=== PATIENT | female | born 1990 ===

== ENCOUNTER 2023-03-02 17:07 | Inpatient (IN) ==
[2023-03-02] MEDS ORDERED: OXYTOCIN 30 UNITS/500 ML BAG IV PRN (19:48)
[2023-03-02] MEDS ORDERED: LIDOCAINE 1% LOCAL 20 ML VIAL INFIL PRN (19:48)
--- NOTE | 2023-03-02 19:51 | History & Physical Report ---
Date of Service March 02, 2023 Assessment & Plan (1) Supervision of normal intrauterine in primigravida: Plan: Admit to L&D. Suspect early labor, but since she is gustavo and making cervical change will admit. She would prefer to allow labor to progress naturally and does not plan for an epidural. Labs, IV, EFM/toco. History of Present Illness Chief Complaint: contractions Primary Care Provider: NO PCP 32yo @ 41 11/27, presented to L&D with contractions. No leaking fluid, no vaginal bleeding. + movement. 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 Allergies Allergy/AdvReac Type Severity Reaction Status Date / Time No Known Allergies Allergy Verified 03/02/23 17:51 Home Medications Medication Instructions Recorded Confirmed Type vitamin with calcium 1 tab PO DAILY 08/29/22 03/02/23 History no.72-iron 27 mg-folic acid 1 mg tablet ( Plus (calcium carbonate)) famotidine [Pepcid] PO 02/07/23 02/28/23 History Patient History Surgical History S/P dilation and curettage S/P wisdom tooth extraction Family History (Updated 08/29/22 @ 13:42 by Kelli Causey) Grandmother Heart disease Aunt Diabetes Social History (Updated 08/29/22 @ 13:43 by Kelli Causey) Smoking Status: Never smoker Do You Dip or Chew Tobacco: No; Hx Alcohol Use: No Hx Substance Use: No Preferred Language: Tuvaluan Communication Ability: Effective 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 Beliefs That Will Affect Care: None marital status: marital status details: Manny (33) [phone] Current Living Situation: Spouse Current Living Situation Comment: Manny - current occupational status: employed current occupation: [employer] Other Information That Helps Us Care for You: No Feels Safe at Home: Yes Safety Concerns: Feels Safe At This Time Review of Systems All systems reviewed & are unremarkable except as noted in HPI & below Physical Exam Physical Exam: FHT Cat 1 [place] Q 2-4 SVE on presentation , recheck 2h later Constitutional: WD/WN, vitals as above Respiratory: normal respiratory effort, lungs clear to auscultation no respiratory distress Cardiovascular: Rate/Rhythm: regular rate and regular rhythm Gastrointestinal (Abdomen): Inspection/Auscultation: abdomen normal to inspection Percussion/Palpation: abdomen soft; abdomen nontender Gravid. No s/s chorio or abruption. Skin: no rashes, warm and dry Psychiatric: A+Ox3, euthymic affect Results & Data Vital Signs (Past 12 Hours) Vital Signs Temp Pulse Resp BP 03/02/23 19:07 18 03/02/23 19:07 36.7 C 18 03/02/23 19:09 73 112/85 03/02/23 17:27 90 137/87 03/02/23 17:26 37.3 C 20 Coding Level of Care Code None Diagnoses Supervision of normal intrauterine in primigravida Z34.00
[2023-03-02 20:17] LABS: Hemoglobin 12.9 g/dl (12.0-16.0); Mean Corpuscular Hemoglobin 30.6 pg (25.0-34.0); Mean Corpuscular Hgb Conc 34.9 g/dL (32.0-36.0); Mean Corpuscular Volume 87.7 fL (80.0-100.0); Mean Platelet Volume 11.9 fL (9.4-12.4); Platelet Count 200 K/uL (130-400); RDW Coefficient of Variation 13.8 % (11.5-14.5); Red Blood Count 4.22 M/uL (4.20-5.40); White Blood Count 14.14 K/ul (4.8-10.8)
[2023-03-03] MEDS: LACTATED RINGER'S 1,000 ML IV PRN ×3 (03:42→11:16)
[2023-03-03] MEDS ORDERED: ePHEDrine sulfate 50 MG/ML AMP ONE (03:50)
[2023-03-03] MEDS ORDERED: BUPIVACAINE 0.25% PF 30 ML VIAL ONE (03:50)
[2023-03-03] MEDS ORDERED: SODIUM CHLORIDE 0.9% PF INJ 10 ML VIAL ONE (03:50)
[2023-03-03] MEDS ORDERED: fentaNYL citrate PF 100 MCG/2 ML VIAL ONE (03:50)
[2023-03-03] MEDS ORDERED: LIDOCAINE 2%/EPINEPHRINE 1:200,000 20 ML PF ONE (03:51)
[2023-03-03] MEDS ORDERED: fentaNYL 2MCG/ML ROPIVACAINE 1.25MG/ML 100 ML BAG EPI ONE (03:51)
[2023-03-03] MEDS ORDERED: BUPIVACAINE 0.25% PF 30 ML VIAL EPI PRN (04:00)
[2023-03-03] MEDS ORDERED: LIDOCAINE 2% MPF LOCAL 5 ML VIAL EPI PRN (04:00)
[2023-03-03] MEDS ORDERED: BUPIVACAINE 0.25% PF 30 ML VIAL EPI STA (04:00)
[2023-03-03] MEDS ORDERED: ROPIVACAINE 0.5% PF 5 MG/ML 20 ML VIAL EPI PRN (04:00)
[2023-03-03] MEDS ORDERED: SODIUM CHLORIDE 0.9% PF INJ 10 ML VIAL EPI PRN (04:00)
[2023-03-03] MEDS ORDERED: NALOXONE HCL 0.4 MG/1 ML VIAL/CARP IV PRN (04:00)
[2023-03-03] MEDS ORDERED: SODIUM CHLORIDE 0.9% PF INJ 10 ML VIAL EPI STA (04:00)
[2023-03-03] MEDS ORDERED: diphenhydrAMINE 50 MG/ML VIAL IV PRN (04:00)
[2023-03-03] MEDS ORDERED: fentaNYL citrate PF 100 MCG/2 ML VIAL EPI PRN (04:00)
[2023-03-03] MEDS ORDERED: ePHEDrine sulfate 50 MG/ML AMP IV PRN (04:00)
[2023-03-03] MEDS ORDERED: NALOXONE HCL 1 MG in SODIUM CHLORIDE 0.9% 1,000 ML IV PRN (04:00)
[2023-03-03] MEDS ORDERED: NALBUPHINE HCL INJ 10 MG/ML AMP IV PRN (04:00)
[2023-03-03] MEDS ORDERED: LIDOCAINE 2%/EPINEPHRINE 1:200,000 20 ML PF EPI STA (04:00)
[2023-03-03] MEDS ORDERED: fentaNYL citrate PF 100 MCG/2 ML VIAL EPI STA (04:00)
--- NOTE | 2023-03-03 04:00 | Anesthesiology Consultation ---
Date of Service March 03, 2023 Assessment & Plan (1) Encounter for pre-operative examination: Chart Review Chart Review: Patient NOT seen in Pre Admission Testing and Acceptable Risk for Labor Epidural Consults Requested none History Height/Weight Height: 5 ft 2 in Weight: 72.575 kg Allergies Allergy/AdvReac Type Severity Reaction Status Date / Time No Known Allergies Allergy Verified 03/02/23 17:51 Medications Home Medications Medication Instructions Recorded Confirmed Last Taken vitamin with calcium 1 tab PO DAILY 08/29/22 03/02/23 03/01/23 no.72-iron 27 mg-folic acid 1 mg tablet ( Plus (calcium carbonate)) famotidine [Pepcid] PO 02/07/23 02/28/23 Unknown Active Medications Generic Name Dose Route Start Last Admin Trade Name Freq PRN Reason Stop Dose Admin Lactated Ringer's 1,000 mls @ 125 mls/hr 03/02/23 19:48 03/03/23 03:42 Lr IV 03/04/23 19:47 999 mls/hr .Q8H PRN Administration L&D Protocol Protocol Past Family History Family History Grandmother Heart disease Aunt Diabetes Past Surgical History Surgical History S/P dilation and curettage S/P wisdom tooth extraction Social History Smoking Status: Never smoker Do You Dip or Chew Tobacco: No Hx Alcohol Use: No Hx Substance Use: No Physical Exam Vital Signs Last Vital Signs Temp 98.6 F 03/03/23 01:10 Pulse 78 03/02/23 22:50 Resp 16 03/03/23 01:10 BP 124/84 03/02/23 22:50 Testing Laboratory Results 03/02/23 19:55
[2023-03-03] MEDS: fentaNYL 2MCG/ML ROPIVACAINE 1.25MG/ML 100 ML BAG EPI PRN ×2 (04:27→11:25)
[2023-03-03] MEDS ORDERED: OXYTOCIN 30 UNITS/500 ML BAG IV PRN ×2 (06:39→14:26)
--- NOTE | 2023-03-03 06:41 | Labor Progress Brief Note ---
Date of Service March 03, 2023 Subjective Patient decided upon epidural, she rec'd this, and is now comfortable. FHT Cat 1 [place] Q 2-4 SVE 5/100/+1 Agreeable to start pitocin at this point. Assessment & Plan Admission and Anticipated Discharge Date Admission Date: March 02, 2023 Results & Data Vital Signs (Past 12 Hours) Vital Signs Temp Pulse Resp BP Pulse Ox Pulse Ox O2 Del Method 03/03/23 04:43 96 Room Air 03/03/23 06:36 102 H 96 03/03/23 06:31 95 H 97 03/03/23 06:26 90 96 03/03/23 06:25 86 131/82 03/03/23 06:21 85 95 03/03/23 06:16 86 96 03/03/23 06:11 84 96 03/03/23 06:10 85 125/81 03/03/23 06:06 82 96 03/03/23 06:01 82 97 03/03/23 05:56 84 122/78 96 03/03/23 05:51 84 97 03/03/23 05:46 91 H 95 03/03/23 05:41 37.2 C 89 18 97 03/03/23 05:39 100 H 111/68 03/03/23 05:36 98 H 97 03/03/23 05:35 83 117/72 03/03/23 05:31 91 H 96 03/03/23 05:30 83 116/70 03/03/23 05:26 87 96 03/03/23 05:24 83 119/75 03/03/23 05:21 90 95 03/03/23 05:20 86 118/73 03/03/23 05:16 85 96 03/03/23 05:14 80 120/71 03/03/23 05:11 91 H 96 03/03/23 05:09 83 116/69 03/03/23 05:06 80 96 03/03/23 05:04 85 111/69 03/03/23 05:01 79 95 03/03/23 04:59 84 112/71 03/03/23 04:56 82 96 03/03/23 04:55 78 114/68 03/03/23 04:51 86 96 03/03/23 04:49 80 111/67 03/03/23 04:46 86 96 03/03/23 04:44 85 114/71 03/03/23 04:41 82 96 03/03/23 04:38 86 113/69 03/03/23 04:36 88 111/69 96 03/03/23 04:34 93 H 110/68 03/03/23 04:32 93 H 111/69 03/03/23 04:31 94 H 97 03/03/23 04:30 37.2 C 95 H 18 113/69 03/03/23 04:28 98 H 115/67 03/03/23 04:26 99 H 124/76 97 03/03/23 04:24 96 H 125/76 03/03/23 04:23 99 H 125/75 03/03/23 04:21 106 H 97 03/03/23 04:16 102 H 97 03/03/23 04:11 98 H 98 03/03/23 04:06 100 H 97 03/03/23 01:10 16 03/03/23 01:10 37.0 C 03/02/23 22:49 18 03/02/23 22:49 36.9 C 03/02/23 22:50 78 124/84 03/02/23 21:00 03/02/23 21:00 37.0 C 03/02/23 19:07 18 03/02/23 19:07 36.7 C 03/02/23 19:09 73 112/85 Coding Level of Care Code None Diagnoses
[2023-03-03] MEDS ORDERED: NURSING L&D Epidural Breakthrough Pain Update ONE (07:05)
[2023-03-03] MEDS ORDERED: CALCIUM CARBONATE 500 MG CHEWABLE TAB PO ONE (07:50)
--- NOTE | 2023-03-03 10:20 | Anesthesia Procedure Note ---
Date of Service March 03, 2023 Anesthesia Epidural Re-Dose Vital Signs Temp Pulse Resp BP Pulse Ox O2 Del Method 37.3 C 82 20 130/70 94 Room Air 03/03/23 09:03 03/03/23 10:18 03/03/23 09:30 03/03/23 10:11 03/03/23 10:18 03/03/23 04:43 Notes Pain Intensity: 5 Dilatation (cm): 7.0 Effacement (%): 90 After Epidural Re-Dose Mental Status: alert / awake / arousable Pain: see Notes below Airway Patency, RR, SpO2: stable & adequate BP & HR: stable & adequate Additional Notes: pt with left sided pain. bolused with 5 cc lido with epi
[2023-03-03] MEDS ORDERED: ACETAMINOPHEN 500 MG TAB PO PRN (11:13)
[2023-03-03] MEDS ORDERED: AMPICILLIN SOD 1 GM VIAL IV STA (11:14)
[2023-03-03] MEDS ORDERED: GENTAMICIN CONSULT ACTIVE PRN (11:16)
[2023-03-03] MEDS ORDERED: GENTAMICIN SULFATE 360 MG in DEXTROSE 5% 100 ML IV ONE (11:30)
[2023-03-03] MEDS ORDERED: AMPICILLIN 2,000 MG in 0.9 % SODIUM CHLORIDE 100 ML IV ONE (11:30)
[2023-03-03] MEDS ORDERED: miSOPROStoL 200 MCG TAB PR ONE (14:18)
[2023-03-03] MEDS ORDERED: bisacodyL 10 MG SUPP PR PRN (14:26)
[2023-03-03] MEDS ORDERED: BENZOCAINE 20% SPRY 85 APPLN/85 GM CAN EXT PRN (14:26)
[2023-03-03] MEDS ORDERED: HYDROCORTISONE ACETATE 25 MG SUPP PR PRN (14:26)
[2023-03-03] MEDS ORDERED: DIPHTHERIA/TETANUS/PERTUSSIS Vaccine (Tdap, Age 7+yrs) 0.5mL SYR/VL IM ONE (14:26)
[2023-03-03] MEDS ORDERED: ACETAMINOPHEN 325 MG TAB PO PRN (14:26)
[2023-03-03] MEDS ORDERED: oxyCODONE/ACETAMINOPHEN 5mg/325mg TAB PO PRN (14:26)
--- NOTE | 2023-03-03 15:07 | Anesthesia Procedure Note ---
Date of Service March 03, 2023 Anesthesia Post Epidural Note Vital Signs Vital Signs: Temp Pulse Resp BP Pulse Ox O2 Del Method 37.6 C H 81 18 114/68 94 Room Air 03/03/23 12:55 03/03/23 15:01 03/03/23 15:01 03/03/23 15:00 03/03/23 15:01 03/03/23 04:43 Pain Intensity Right Abdomen: Pain Intensity: 1 Notes Mental Status: alert / awake / arousable and participated in evaluation Nausea / Vomiting: adequately controlled Pain: adequately controlled Airway Patency, RR, SpO2: stable & adequate BP & HR: stable & adequate Hydration State: stable & adequate Neuraxial Anesthesia: was administered and sensory block is resolving Anesthetic Complications: no major complications apparent and Pt Satisfied with anesthetic care Epidural: Removed without complications and With tip intact
[2023-03-03] MEDS: IBUPROFEN 600 MG TAB PO PRN (16:12)
[2023-03-03] MEDS: DOCUSATE SODIUM 100 MG CAP PO SCH (22:43)
--- NOTE | 2023-03-04 06:13 | Obstetrical Progress Note ---
Date of Service <Chuck Palmer DO - Last Filed: 03/04/23 06:13> March 04, 2023 Assessment & Plan <Chuck Palmer DO - Last Filed: 03/04/23 06:13> (1) (spontaneous vaginal delivery): Plan post day 1 s/p Vital signs reviewed and WNL Pt feels well today, eating, voiding, and ambulating well Pain well controlled with Motrin Routine post care - OOB, ambulation, diet progression as tolerated After discharge, will have 6 week follow-up with Dr. Mendez. <Nahed Romero MD - Last Filed: 03/04/23 07:52> (1) (spontaneous vaginal delivery): Subjective <Chuck Palmer DO - Last Filed: 03/04/23 06:13> Ambulation: ambulating normally Voiding: no voiding problems Passing Gas:: Yes Diet Tolerance:: regular diet Lochia:: Moderate Feeding Type:: breast feeding Pain well controlled with Motrin Review of Systems -Denies fever or chills -Denies dyspnea, chest pain, or palpitations -Denies breast pain -Denies dysuria -Denies headache or changes in vision Physical Exam <Chuck Palmer DO - Last Filed: 03/04/23 06:13> General: Alert and oriented. No acute distress Cardiac: Regular rate and rhythm, no murmurs appreciated Respiratory: Lungs clear to auscultation bilaterally, No increased work of breathing Abdominal: Soft, non-tender, non-distended. Bowel sounds present. Uterus: Uterine fundus firm, palpable below umbilicus Extremities: No lower extremity edema, calves non-tender bilaterally Results & Data <Chuck Palmer DO - Last Filed: 03/04/23 06:13> Vital Signs (Past 12 Hours) Vital Signs Temp Pulse Resp BP Pulse Ox O2 Del Method 03/04/23 00:30 36.8 C 80 16 125/68 03/03/23 21:00 36.7 C 92 H 16 115/78 97 Room Air 03/03/23 19:00 Room Air 03/03/23 19:00 36.9 C 81 18 96 Room Air <Nahed Romero MD - Last Filed: 03/04/23 07:52> Co-Signing Physician Notes Resident Physician Supervision Note: I interviewed and examined the patient. Discussed with Dr. Palmer and agree with findings and plan as documented in the note. Any exceptions or clarifications are listed here: PP1 s/p c/b chorio, doing well. VSS, exam benign and wnl. Continue routine pp care Documented By: Nahed Romero MD Resident Activity Tracking <Chuck Palmer, - Last Filed: 03/04/23 06:13> Resident Involvement: Resident Care Provided Care Provided: OB Delivery
[2023-03-04 07:16] LABS: Hematocrit (blood only) 33.5 % (37.0-47.0); Hemoglobin 11.4 g/dl (12.0-16.0); Mean Corpuscular Hemoglobin 30.5 pg (25.0-34.0); Mean Corpuscular Volume 89.6 fL (80.0-100.0); Platelet Count 167 K/uL (130-400); RDW Coefficient of Variation 14.2 % (11.5-14.5); RDW Standard Deviation 46.2 fL (36.4-46.3); Red Blood Count 3.74 M/uL (4.20-5.40); White Blood Count 21.51 K/ul (4.8-10.8)
[2023-03-04] MEDS: DOCUSATE SODIUM 100 MG CAP PO SCH (07:42)
[2023-03-04] MEDS: IBUPROFEN 600 MG TAB PO PRN ×2 (07:42→19:20)
[2023-03-04] MEDS: PRENATAL VITAMIN 1 TAB PO SCH (07:42)
[2023-03-04] MEDS ORDERED: bisacodyL 5 MG TABEC PO SCH (20:00)
--- NOTE | 2023-03-05 05:07 | Obstetrical Progress Note ---
Date of Service <Chuck Palmer - Last Filed: 03/05/23 05:56> March 05, 2023 Assessment & Plan <Chuck Palmer DO - Last Filed: 03/05/23 05:56> (1) (spontaneous vaginal delivery): Plan post day 2 s/p Vital signs reviewed and WNL Pt feels well today, eating, voiding, and ambulating well Pain well controlled with Motrin Routine post care - OOB, ambulation, diet progression as tolerated After discharge, will have 6 week follow-up with Dr. Mendez. <Krys Cooper MD - Last Filed: 03/05/23 07:16> (1) (spontaneous vaginal delivery): Subjective <Chuck Palmer - Last Filed: 03/05/23 05:56> Ambulation: ambulating normally Voiding: no voiding problems Passing Gas:: Yes Diet Tolerance:: regular diet Lochia:: Small Feeding Type:: breast feeding Pain well controlled with Motrin Review of Systems -Denies fever or chills -Denies dyspnea, chest pain, or palpitations -Denies breast pain -Denies dysuria -Denies headache or changes in vision Physical Exam <Chuck Palmer - Last Filed: 03/05/23 05:56> General: Alert and oriented. No acute distress Cardiac: Regular rate and rhythm, no murmurs appreciated Respiratory: Lungs clear to auscultation bilaterally, No increased work of breathing Abdominal: Soft, non-tender, non-distended. Bowel sounds present. Uterus: Uterine fundus firm, palpable below umbilicus Extremities: No lower extremity edema, calves non-tender bilaterally Results & Data <Chuck Palmer - Last Filed: 03/05/23 05:56> Vital Signs (Past 12 Hours) Vital Signs Temp Pulse Resp BP Pulse Ox O2 Del Method 03/05/23 03:00 36.9 C 69 17 118/74 99 Room Air 03/04/23 19:30 37.0 C 84 18 116/80 98 Room Air <Krys Cooper MD - Last Filed: 03/05/23 07:16> Co-Signing Physician Notes Resident Physician Supervision Note: I interviewed and examined the patient. Discussed with Dr. Palmer and agree with findings and plan as documented in the note. Any exceptions or clarifications are listed here: [ ] Documented By: Krys Cooper MD, FACOG Resident Activity Tracking <Chuck Palmer DO - Last Filed: 03/05/23 05:56> Resident Involvement: Resident Care Provided Care Provided: OB Delivery
[2023-03-05 06:30] LABS: Hematocrit (blood only) 32.7 % (37.0-47.0); Hemoglobin 11.2 g/dl (12.0-16.0)
[2023-03-05] MEDS: DOCUSATE SODIUM 100 MG CAP PO SCH (08:16)
[2023-03-05] MEDS: PRENATAL VITAMIN 1 TAB PO SCH (08:16)
[2023-03-05] MEDS: IBUPROFEN 600 MG TAB PO PRN (08:16)
--- NOTE | 2023-03-05 16:31 | Delivery Summary ---
Vaginal Delivery Summary Date of Service March 03, 2023 Vaginal Delivery Summary and 1st Degree LAC Patient progressed to 10 cm dilated, 100% effaced, +2 station pushed over intact perineum with epidural anesthesia and delivered a viable female with weight of 6 pounds 9 ounces and Apgars of 8 and 9 at 1 and 5 minutes respectively. Had the delivered in MICHELE position, body and shoulders quickly followed. was noted to be vigorous soon after delivery and a 1 minute delayed cord clamping was initiated. Cord was double clamped and cut. Cord blood obtained. Placenta delivered spontaneously with three-vessel cord with gentle cord traction. There is noted be bilateral labial lacerations repaired with 3-0 Vicryl with continuous running stitch. Needle sponge and instrument counts are correct at the completion of the case. Both mother and stable in the immediate postdelivery period. [facility] Vaginal Delivery Charge Delivery Type Details: and 1st Degree LAC
== END 2023-03-05 12:10 | disposition home or self-care (01) | DRG 807 ==
LOC: OPB 17:07 → 4S1 17:09 → 4E2 03-03 17:16